=== PATIENT | female | born 1985 | race Caucasian/White ===

== ENCOUNTER 2020-02-09 09:30 | Outpatient (CLI) | payer OTHER ==
[~2020-02-09 09:30] MED LIST: FOLGARD TABLET1 EACH PO; FUSION PLUS CA1 EACH PO; SYNTHROID88 MCG PO
== END 2020-02-09 10:17 | disposition home or self-care (01) ==
LOC: NST 09:30
PROVIDERS: ATTEND Obstetrics & Gynecology Maternal & Fetal Medicine
DX: Z34.83 Encounter for supervision of other normal pregnancy, third trimester (principal)

== ENCOUNTER 2020-03-08 09:25 | Outpatient (CLI) | payer OTHER | END 2020-03-08 12:39 | disposition home or self-care (01) | LOC: NST 09:25 | PROVIDERS: ATTEND Obstetrics & Gynecology | DX: Z34.83 Encounter for supervision of other normal pregnancy, third trimester (principal) ==

== ENCOUNTER → 2020-03-28 | Outpatient (CLI) | payer OTHER ==
[~2020-03-28] MED LIST changes: +ALDOMET250 MG/5 M PO; +FORTAMET500 MG PO; +LO-DOSE ASPIRIN81 M1 PO; +PRENATAL TABLE1 EAC1 PO; +SYNTHROID112 MCG PO
== END | disposition home or self-care (01) ==
LOC: NST 07:17
PROVIDERS: ATTEND Obstetrics & Gynecology Maternal & Fetal Medicine
DX: Z34.83 Encounter for supervision of other normal pregnancy, third trimester (principal)

== ENCOUNTER 2020-04-04 07:40 | Outpatient (CLI) | payer OTHER ==
[~2020-04-04 07:40] MED LIST changes: -ALDOMET250 MG/5 M PO; -FORTAMET500 MG PO; -LO-DOSE ASPIRIN81 M1 PO; -PRENATAL TABLE1 EAC1 PO; -SYNTHROID112 MCG PO
== END 2020-04-04 08:19 | disposition home or self-care (01) ==
LOC: NST 07:40
PROVIDERS: ATTEND Obstetrics & Gynecology Maternal & Fetal Medicine
DX: Z34.83 Encounter for supervision of other normal pregnancy, third trimester (principal)

== ENCOUNTER 2020-04-08 06:30 | Inpatient (IN) | payer OTHER ==
[~2020-04-08] VITALS: Ht 172.7 cm; Wt 115.7 kg
[2020-04-08] MEDS ORDERED: LO-DOSE ASPIRIN81 M1 PO (16:27)
[2020-04-08] MEDS ORDERED: SYNTHROID112 MCG PO (16:28)
[2020-04-08] MEDS ORDERED: ALDOMET250 MG/5 M PO (16:29)
[2020-04-08] MEDS ORDERED: FORTAMET500 MG PO ×2 (16:36→16:37)
[2020-04-08] MEDS ORDERED: PRENATAL TABLE1 EAC1 PO (16:39)
== END 2020-04-10 14:56 | disposition home or self-care (01) | DRG 807 ==
LOC: SURG-SUITE 06:30 → LDR 06:30 → SURG-SUITE 17:49 → LDR 04-09 13:17 → SURG-SUITE 04-10 14:56
PROVIDERS: ADMIT Obstetrics & Gynecology Maternal & Fetal Medicine; ATTEND Obstetrics & Gynecology Maternal & Fetal Medicine
PROC: 10E0XZZ Delivery of Products of Conception, External Approach (ICD-10-PCS; principal; 2020-04-08)
PROC: 0W8NXZZ Division of Female Perineum, External Approach (ICD-10-PCS; 2020-04-08)
PROC: 3E033VJ Introduction of Other Hormone into Peripheral Vein, Percutaneous Approach (ICD-10-PCS; 2020-04-08)
PROC: 4A1HXFZ Monitoring of Products of Conception, Cardiac Rhythm, External Approach (ICD-10-PCS; 2020-04-08)
DX: O80 Encounter for full-term uncomplicated delivery (principal); Z37.0 Single live birth; Z3A.38 38 weeks gestation of pregnancy

== ENCOUNTER 2022-04-26 04:31 | Emergency (ER) | payer OTHER ==
[~2022-04-26] VITALS: Ht 167.6 cm; Wt 112.5 kg
[~2022-04-26 04:31] MED LIST changes: +ALDOMET250 MG/5 M PO; +FORTAMET500 MG PO; +LO-DOSE ASPIRIN81 M1 PO; +PRENATAL TABLE1 EAC1 PO; +SYNTHROID112 MCG PO
[2022-04-26] MEDS ORDERED: LABETALOL HCL100 MG (04:59)
== END 2022-04-26 08:21 | disposition home or self-care (01) ==
LOC: ER 04:31
DX: A05.9 Bacterial foodborne intoxication, unspecified (principal)

== ENCOUNTER 2023-06-21 09:46 | Outpatient (CLI) | payer OTHER ==
[~2023-06-21 09:46] MED LIST changes: +LABETALOL HCL100 MG
== END 2023-06-21 10:24 | disposition home or self-care (01) ==
LOC: NST 09:46
PROVIDERS: ATTEND Obstetrics & Gynecology Maternal & Fetal Medicine
DX: Z34.82 Encounter for supervision of other normal pregnancy, second trimester (principal)

== ENCOUNTER 2023-07-05 09:54 | Outpatient (CLI) | payer OTHER | END 2023-07-05 11:09 | disposition home or self-care (01) | LOC: NST 09:54 | PROVIDERS: ATTEND Obstetrics & Gynecology Gynecology | DX: Z34.83 Encounter for supervision of other normal pregnancy, third trimester (principal) ==